=== PATIENT | male | born 1985 | race Two or more races ===

== ENCOUNTER 2017-04-06 09:38 | Emergency (ER) | payer BC ==
[2017-04-06 09:51] VITALS: BP 130/93
[2017-04-06] MEDS ORDERED: Ondansetron 4 MG/2 ML SDV IVPUSH ONE (10:21)
[2017-04-06] MEDS ORDERED: Sodium Chloride 0.9% 1,000 ML IV ONE (10:21)
--- NOTE | 2017-04-06 10:40 | EDM.PDOC ---
ED HPI GENERAL MEDICAL PROBLEM - General Chief Complaint: Drug or Alcohol Abuse Stated Complaint: POSSIBLE TYLENOL OVERDOSE Time Seen by Provider: 04/06/17 09:46 Source of Information: Reports: Patient, RN Notes Reviewed History Limitations: Reports: No Limitations - History of Present Illness INITIAL COMMENTS - FREE TEXT/NARRATIVE: The patient states that he is concerned that he may have accidentally taken an overdose of Tylenol. He states that he ordinarily takes about 10 ibuprofen, 200 mg per day to treat dental pain. He states that he ran out and purchased a new bottle, but when he checked today, found that it was extra strength Tylenol 650 mg, not ibuprofen. He states that he took approximately 10 of these tablets between the hours of 16 :00 yesterday afternoon through 03:00 this morning. He states that he developed nausea and vomiting around 06:00. No recent fever. According to Up To Date, toxicity is unlikely to result from a single dose of less than 7.5 to 10 g for an adult, and is likely to occur with single ingestions greater than 250 mg/kg or those greater than 12 g over a 24-hour period. In this case, the patient may have ingested 6.5 g = 62 mg/kg over an 11 hour period, therefore we would not expect his ingestion to be of a toxic level. The patient does not have a PCP. Treatments [employer]: Reports: Acetaminophen Left Lower Tooth/Teeth Pain Score (Numeric/FACES): 7 - Related Data Allergies Allergy/AdvReac Type Severity Reaction Status Date / Time No Known Allergies Allergy Verified 04/06/17 09:52 Home Meds: Home Meds Acetaminophen [Tylenol Arthritis] 650 mg PO ASDIRECTED PRN 04/06/17 [History] Past Medical History - Past Surgical History HEENT Surgical History: Reports: Adenoidectomy, Tonsillectomy Social & Family History - Tobacco Use Smoking Status *Q: Never Smoker Second Hand Smoke Exposure: No - Caffeine Use Caffeine Use: Reports: Soda - Alcohol Use Alcohol Use History: Yes Alcohol Use Frequency: Rarely - Recreational Drug Use Recreational Drug Use: No - Living Situation & Occupation Living situation: Reports: , with Spouse, with Family (4 kids) Occupation: Employed ([employer] ED ROS GENERAL - Review of Systems Review Of Systems: See Below Constitutional: Reports: No Symptoms HEENT: Reports: Dental Pain (as per the HPI) Respiratory: Reports: No Symptoms Cardiovascular: Reports: No Symptoms Endocrine: Reports: No Symptoms GI/Abdominal: Reports: No Symptoms : Reports: No Symptoms Musculoskeletal: Reports: No Symptoms Skin: Reports: No Symptoms Neurological: Reports: No Symptoms Psychiatric: Reports: No Symptoms Hematologic/Lymphatic: Reports: No Symptoms Immunologic: Reports: No Symptoms ED EXAM, GENERAL - Physical Exam Exam: See Below Exam Limited By: No Limitations General Appearance: Alert, WD/WN, No Apparent Distress Eye Exam: Bilateral Eye: Normal Inspection Ears: Normal External Exam, Normal Canal, Hearing Grossly Normal, Normal TMs Nose: Normal Inspection, Normal Mucosa, No Blood Throat/Mouth: Normal Inspection, Normal Lips, Normal Oropharynx, Normal Voice, No Airway Compromise, Other (Numerous upper and lower teeth with advanced decay. No obvious dental infection seen.) Head: Atraumatic, Normocephalic Neck: Normal Inspection, Full Range of Motion. No: Lymphadenopathy (L), Lymphadenopathy (R) Respiratory/Chest: No Respiratory Distress, Lungs Clear, Normal Breath Sounds, No Accessory Muscle Use Cardiovascular: Normal Peripheral Pulses, Regular Rate, Rhythm, No Gallop, No JVD, No Murmur, No Rub Peripheral Pulses: 4+: Radial (L), Radial (R) GI/Abdominal: Normal Bowel Sounds, Soft, Non-Tender, No Organomegaly, No Distention, No Abnormal Bruit, No Mass, Other (Obese) (Male) Exam: Deferred Rectal (Males) Exam: Deferred Back Exam: Normal Inspection, Full Range of Motion, NT Extremities: Normal Inspection, Normal Range of Motion, No Pedal Edema, Normal Capillary Refill Neurological: Alert, Oriented, Normal Cognition, No Motor/Sensory Deficits Psychiatric: Normal Affect Skin Exam: Warm, Dry, Intact, Normal Color, No Rash Lymphatic: No Adenopathy Course - Vital Signs Last Recorded V/S: Last Vital Signs Temp 36.1 C 04/06/17 09:47 Pulse 70 04/06/17 09:47 Resp 17 04/06/17 09:47 BP 130/93 H 04/06/17 09:47 Pulse Ox 97 04/06/17 09:47 - Orders/Labs/Meds Labs: Laboratory Tests 04/06/17 04/06/17 04/06/17 Range/Units 09:55 09:55 09:55 WBC 7.53 (4.23-9.07) K/mm3 RBC 5.66 (4.63-6.08) M/mm3 Hgb 16.6 (13.7-17.5) gm/L Hct 46.9 (40.1-51.0) % MCV 82.9 (79.0-92.2) fl MCH 29.3 (25.7-32.2) pg MCHC 35.4 (32.2-35.5) g/dl RDW Std Deviation 40.6 (35.1-43.9) fL Plt Count 214 (163-337) K/mm3 MPV 10.4 (9.4-12.3) fl Neutrophils % (Manual) 76 H (40-60) % Band Neutrophils % 0 (0-10) % Lymphocytes % (Manual) 20 (20-40) % Monocytes % (Manual) 4 (2-10) % Eosinophils % (Manual) 0 L (0.8-7.0) % Basophils % (Manual) 0 L (0.2-1.2) Platelet Estimate Adequate RBC Morph Comment Normal Sodium 138 (136-145) mEq/L Potassium 4.3 (3.5-5.1) mEq/L Chloride 101 (98-107) mEq/L Carbon Dioxide 29 (21-32) mEq/L Anion Gap 12.3 (5-15) BUN 10 (7-18) mg/dL Creatinine 1.3 (0.7-1.3) mg/dL Est Cr Clr Drug Dosing 82.33 mL/min Estimated GFR (MDRD) > 60 (>60) mL/min BUN/Creatinine Ratio 7.7 L (14-18) Glucose 135 H (74-106) mg/dL Calcium 9.0 (8.5-10.1) mg/dL Total Bilirubin 0.6 (0.2-1.0) mg/dL AST 109 H (15-37) U/L ALT 135 H (16-63) U/L Alkaline Phosphatase 62 (46-116) U/L Total Protein 7.7 (6.4-8.2) g/dl Albumin 4.5 (3.4-5.0) g/dl Globulin 3.2 gm/dL Albumin/Globulin Ratio 1.4 (1-2) Lipase 145 (73-393) U/L Salicylates (2.8-20) mg/dL Acetaminophen 10 (10-30) ug/mL 04/06/17 Range/Units 09:55 WBC (4.23-9.07) K/mm3 RBC (4.63-6.08) M/mm3 Hgb (13.7-17.5) gm/L Hct (40.1-51.0) % MCV (79.0-92.2) fl MCH (25.7-32.2) pg MCHC (32.2-35.5) g/dl RDW Std Deviation (35.1-43.9) fL Plt Count (163-337) K/mm3 MPV (9.4-12.3) fl Neutrophils % (Manual) (40-60) % Band Neutrophils % (0-10) % Lymphocytes % (Manual) (20-40) % Monocytes % (Manual) (2-10) % Eosinophils % (Manual) (0.8-7.0) % Basophils % (Manual) (0.2-1.2) Platelet Estimate RBC Morph Comment Sodium (136-145) mEq/L Potassium (3.5-5.1) mEq/L Chloride (98-107) mEq/L Carbon Dioxide (21-32) mEq/L Anion Gap (5-15) BUN (7-18) mg/dL Creatinine (0.7-1.3) mg/dL Est Cr Clr Drug Dosing mL/min Estimated GFR (MDRD) (>60) mL/min BUN/Creatinine Ratio (14-18) Glucose (74-106) mg/dL Calcium (8.5-10.1) mg/dL Total Bilirubin (0.2-1.0) mg/dL AST (15-37) U/L ALT (16-63) U/L Alkaline Phosphatase (46-116) U/L Total Protein (6.4-8.2) g/dl Albumin (3.4-5.0) g/dl Globulin gm/dL Albumin/Globulin Ratio (1-2) Lipase (73-393) U/L Salicylates 0.4 L (2.8-20) mg/dL Acetaminophen (10-30) ug/mL Meds: Medications Discontinued Medications Generic Name Dose Route Start Last Admin Trade Name Freq PRN Reason Stop Dose Admin Sodium Chloride 1,000 mls @ 999 mls/hr 04/06/17 10:21 04/06/17 10:49 Normal Saline IV 04/06/17 11:21 999 mls/hr ONETIME ONE Administration Ondansetron HCl 4 mg 04/06/17 10:21 04/06/17 10:50 Zofran IVPUSH 04/06/17 10:22 4 mg ONETIME ONE Administration Ondansetron HCl Confirm 04/06/17 10:43 04/06/17 10:53 Zofran Administered 04/06/17 10:44 Not Given Dose 4 mg .ROUTE .[facility] - Re-Assessments/Exams Free Text/Narrative Re-Assessment/Exam: 04/06/17 10:39 The patient's acetaminophen level has returned at 10, well below the toxic level cutoff on the [facility] nomogram. 04/06/17 11:19 Test results discussed with the patient. As above, the patient's acetaminophen level is well below the toxic level. His transaminases are slightly elevated, consistent with hepatic steatosis. His blood glucose is mildly elevated 135. I will refer him to the clinic for further evaluation. I was going to prescribe some Zofran for him, but he states that he does not have any money to fill the prescription, therefore he declined. Departure - Departure Time of Disposition: 11:21 Disposition: Home, Self-Care 01 Condition: Good Clinical Impression: Nausea and vomiting - Discharge Information Instructions: Nausea, Adult, Nausea and Vomiting, Adult Referrals: PCP,None [Primary Care Provider] - Mich Krause [Physician] - Additional Instructions: You were seen in the emergency room for nausea and vomiting, and a concern of possible Tylenol overdose. Workup in the ER included blood work. Your Tylenol level returned at a normal level, well below a toxic level. Your nausea and vomiting are not due to Tylenol toxicity. Your symptoms are MOST LIKELY due to a gastrointestinal virus. We recommend you stay adequately hydrated. Your blood sugar returned mildly elevated at 135. This does not mean you have diabetes, but further evaluation is recommended. You may follow-up with Dr. Krause in the clinic at the next available appointment. If any other problems, please do not hesitate to return to the ER.
[2017-04-06] MEDS ORDERED: Ondansetron 4 MG/2 ML SDV ONE (10:43)
== END 2017-04-06 11:52 | disposition home or self-care (01) ==
LOC: JD.ED 09:38
DX: R11.2 Nausea with vomiting, unspecified (principal); Z98.890 Other specified postprocedural states
CPT/HCPCS: 36415; 80053; 83690; 85025; 96361; 96374; 99284; G0480; J2405; J7040